=== PATIENT | male | born 1945 | race Caucasian/White ===

== ENCOUNTER 2019-09-29 11:34 | Observation (INO) ==
--- NOTE | 2019-09-28 13:46 | Anesthesiology Consultation ---
Date of Service September 28, 2019 Assessment & Plan (1) Encounter for pre-operative examination: Chart Review Chart Review: Pending: Refer to Additional Notes / Consult section awaiting labs/ecg History Surgery Operation Date: 09/29/19 13:50 Proposed Procedures p Left Quadricep Tendon Repair - Edgard Arciniega Height/Weight Height: 5 ft 10 in Weight: 85.275 kg Allergies Allergy/AdvReac Type Severity Reaction Status Date / Time No Known Allergies Allergy Verified 09/28/19 12:47 Medications Home Medications Medication Instructions Recorded Confirmed Last Taken oxycodone-acetaminophen [Percocet] 1 tab PO Q6H PRN #12 tab 09/27/19 09/28/19 Unknown ascorbic acid (vitamin C) [Vitamin 1,000 mg PO QAM 09/28/19 09/28/19 Unknown C] aspirin [Aspir-81] 81 mg PO QAM 09/28/19 09/28/19 Unknown atorvastatin 10 mg PO HS 09/28/19 09/28/19 Unknown multivitamin 1 tab PO QAM 09/28/19 09/28/19 Unknown sildenafil 50 mg PO DAILY PRN 09/28/19 09/28/19 Unknown Past Medical History Medical History Colon cancer Glaucoma Hyperlipidemia Non Hodgkin's lymphoma DX'D 2010 TREATED WITH RADIATION-F/U PCP Past Family History Family History Brother Family hx of colon cancer Brother Family hx of colon cancer Aunt Family hx of colon cancer Aunt Family hx of colon cancer Grandfather (Paternal) Family hx of colon cancer Past Surgical History Surgical History Degeneration of lumbar intervertebral disc (Inactive 01/16/14) LOWER BACK History of bowel resection 1990-CHEMO/RADIATION History of cholecystectomy History of colonoscopy Social History Smoking Status: Never smoker Do You Dip or Chew Tobacco: No Hx Alcohol Use: Yes Alcohol type: beer alcohol intake frequency: 0-2 drinks per day Hx Substance Use: No
--- NOTE | 2019-09-28 14:12 | XRay Report ---
XR chest 2V PA/lateral CLINICAL HISTORY: PRE OP COMPARISON STUDY: 01/03/2014 FINDINGS: The cardiac and mediastinal contours are normal. There is no evidence of focal pulmonary co nsolidation. There is no evidence of failure. No pleural effusions are visualized.[ IMPRESSION: No active disease in the chest. ACT 112: Negative or not required by law. Electronically signed by: Irvin Guzman M.D. 09/28/2019 2:11 PM
[2019-09-28 14:25] LABS: Basophils # (auto) 0.03 K/uL (0-0.2); Basophils % (auto) 0.3 %; Eosinophils # (auto) 0.13 K/uL (0-0.5); Eosinophils % (auto) 1.4 %; Hemoglobin 12.9 g/dL (14.0-18.0); Immature Granulocytes # (auto) 0.08 K/uL (0.00-0.02); Immature Granulocytes % (auto) 0.8 %; Lymphocytes # (auto) 1.62 K/uL (1.2-3.4); Lymphocytes % (auto) 16.9 %; Mean Corpuscular Hemoglobin 33.2 pg (25-34); Mean Corpuscular Hgb Conc 33.9 g/dL (32-36); Mean Corpuscular Volume 97.9 fL (80-100); Monocytes # (auto) 0.42 K/uL (0.11-0.59); Monocytes % (auto) 4.4 %; Neutrophils # (auto) 7.29 K/uL (1.4-6.5); Neutrophils % (auto) 76.2 %; Platelet Count 171 K/uL (130-400); RDW Coefficient of Variation 13.5 % (11.5-14.5); RDW Standard Deviation 48.3 fL (36.4-46.3); Red Blood Count 3.88 M/uL (4.7-6.1); White Blood Count 9.57 K/uL (4.8-10.8)
[2019-09-28 14:45] LABS: Albumin Level 3.8 gm/dl (3.4-5.0); BUN Creatinine Ratio 12.8 (10-20); Creatinine Clr Calc Pharmacy 69.3 ml/min; Est GFR (African American) 88.3; Est GFR (Non-African American) 76.2; Potassium 4.1 mmol/L (3.5-5.1)
[2019-09-28 14:48] LABS: Albumin Globulin Ratio 1.2 (0.9-2); Bilirubin,Total 0.9 mg/dl (0.2-1); Globulin 3.2 gm/dl (2.5-4.0)
--- NOTE | 2019-09-29 06:13 | Electrocardiogram Report ---
Test Reason : Blood Pressure : / mmHG Vent. Rate : 086 BPM Atrial Rate : 086 BPM P-R Int : 178 ms QRS Dur : 098 ms QT Int : 380 ms P-R-T Axes : 050 -44 045 degrees QTc Int : 454 ms Normal sinus rhythm Left axis deviation Abnormal ECG When compared with ECG of 03-JAN-2014 15:32, No significant change was found Confirmed by Armen Martinez ([id number]) on 09/29/2019 6:12:57 AM Referred By: Edgard Arciniega Confirmed By:Armen Martinez
[~2019-09-29 11:34] MED LIST: ACETAMINOPHEN 500 MG TAB PO SCH; CEFAZOLIN 2000MG 2,000 MG/15 ML SYR IV SCH; CeleBREX 200 MG CAP PO SCH; EPINEPHrine INJ 1 MG/ML AMP ONE; GABAPENTIN 300 MG CAP PO SCH; LR 15ML/HR IV SCH; LR 60ML/HR IV SCH; ROPIVACAINE 0.5% 5 MG/ML 30 ML VIAL ONE
--- NOTE | 2019-09-29 12:02 | History & Physical Bridge Note ---
Date of Service September 29, 2019 History & Physical Bridge Note I have examined the patient, reviewed the History & Physical and in the interval since the performance of the History & Physical I have noted the following changes of clinical significance: no changes noted
[2019-09-29] MEDS ORDERED: MEPERIDINE HCL 25 MG/ML CARP IV PRN (14:05)
[2019-09-29] MEDS ORDERED: PHENYLEPHRINE 100MCG/ML 5ML SYR IV PRN (14:05)
[2019-09-29] MEDS ORDERED: ePHEDrine sulfate 50 MG/ML AMP IV PRN (14:05)
[2019-09-29] MEDS ORDERED: LABETALOL HCL IV 5 MG/ML 20ML IV PRN (14:05)
[2019-09-29] MEDS ORDERED: ONDANSETRON INJ 2 MG/ML 2 ML VIAL IV PRN (14:05)
[2019-09-29] MEDS ORDERED: fentaNYL citrate 100 MCG/2 ML VIAL IV PRN (14:05)
[2019-09-29] MEDS ORDERED: ATROPINE SULFATE 0.1 MG/ML 10ML SYR IV PRN (14:05)
[2019-09-29] MEDS ORDERED: fentaNYL citrate 100 MCG/2 ML VIAL ONE ×2 (14:13→15:58)
[2019-09-29] MEDS ORDERED: MIDAZOLAM HCL 1 MG/ML 2ML VIAL ONE (14:13)
[2019-09-29] MEDS ORDERED: EPINEPHrine INJ 1 MG/ML AMP ONE (15:03)
[2019-09-29] MEDS ORDERED: BUPIVACAINE 0.25% 30 ML VIAL ONE (15:04)
[2019-09-29] MEDS ORDERED: ONDANSETRON INJ 2 MG/ML 2 ML VIAL ONE (16:52)
[2019-09-29] MEDS ORDERED: LIDOCAINE HCL 2% 2 ML VIAL/AMP(20MG/ML) INFIL ONE (16:52)
[2019-09-29] MEDS ORDERED: DEXAMETHASONE SOD INJ 4 MG/ML VIAL ONE (16:52)
[2019-09-29] MEDS ORDERED: PROPOFOL IV EMULSION 10 MG/ML 20 ML VIAL IV ONE (16:52)
--- NOTE | 2019-09-29 17:00 | Post Operative Brief Note ---
PG Immediate Post Op with CF Date of Surgery September 29, 2019 Pre & Post Diagnosis Operation Date: 09/29/19 13:50 Pre-Op Diagnosis: Quadricep Tendon Rupture Post-Op Diagnosis: Quadricep Tendon Rupture I identified the patient and participated in the time-out.: Yes Procedure Operation Date: 09/29/19 13:50 Actual Procedures p Left Quadricep Tendon Repair(Left) - Edgard Arciniega Surgeon Edgard Arciniega Straightener Hand Kermit Carroll PA-C Estimated Blood Loss 25 Findings Consistent with Post-Op Diagnosis
[2019-09-29] MEDS ORDERED: NALOXONE HCL 0.4 MG/1 ML VIAL/CARP IV PRN (17:03)
[2019-09-29] MEDS: HYDROmorphone INJ 1 MG/ML SYRINGE IV PRN ×8 (17:35→18:10)
--- NOTE | 2019-09-29 17:53 | Operative Report ---
PG Post Operative Report Pre & Post Diagnosis Operation Date: 09/29/19 13:50 Pre-Op Diagnosis: Quadricep Tendon Rupture Post-Op Diagnosis: Quadricep Tendon Rupture I identified the patient and participated in the time-out.: Yes Procedure Operation Date: 09/29/19 13:50 Actual Procedures p Left Quadricep Tendon Repair(Left) - Edgard Arciniega Surgeon Edgard Arciniega Insurance Assistant Kermit Carroll PA-C Estimated Blood Loss 25 Findings See Below He had a full-thickness quadricep rupture that was minimally retracted. He had extension of the rupture through the medial retinaculum and through the superior lateral retinaculum extended up the lateral aspect of the quadricep tendon. It was easily approximated with minimal tension to proximally 40 degrees of flexion. Repair was accomplished with fiber tape through 3 bone tunnels through the patella. Specimens None Anesthesia Type General Regional Complications none Disposition Accompanied Patient To Recovery: No Disposition: Recovery Room Indications 74-year-old male who sustained a fall onto stairs at home resulting immediate pain and inability to extend his knee. Injury occurred on 09/27/2019. He presented to clinic with history, physical exam and advanced imaging consistent with a full-thickness disruption of the quadricep tendon. He was counseled on his treatment options and surgery was recommended. The risk-benefit surgery outlined in detail as discussed in the preoperative note. Description of Procedure On the day of surgery, the patient was greeted in the preoperative holding area. The informed consent was reviewed and confirmed by myself and the patient. The patient identified the surgical site and was marked by me. The patient was then turned over to anesthesia. Anesthesia performed a regional anesthetic block with excellent effect. Patient was then taken to the operating place upon the OR table and anesthesia was induced. The airway was secured. A midline incision over the patella was made to provide access to the quadricep tendon. We also exposed the distal pole the patella. Medial lateral skin flaps were developed and Bovie electrocautery was used for hemostasis. The peritenon was excised over the quadricep tendon and the tendon stump was debrided. The superior pole of patella or the insertion site of the quadricep tendon was debrided of all soft tissue using curette and rondure. We thoroughly irrigated the hematoma and thoroughly irrigated the joint. The quad tendon was captured with 2 Allis clamps. And then whipstitches were performed with running locking fiber tape suture for 2 cores on the medial lateral aspect resulting in 4 fiber tape tails. The patella was then exposed using a bump underneath the knee. A central drill pin was placed using a 2 mm drill from the superior pole to the inferior pole. Using the central axis II additional tunnels were made using a 2 mm drill on the medial lateral side. The Rift.io suture passer was used from proximal to distal and then loaded with passing suture loop. This was used to shuttle the tails of the quadricep tendon whipstitch back through the tunnels. The central tunnel past the 2 medial tail as well as single tails past of the medial lateral tunnel. The knee was placed in full extension and the tendon was then reduced forcefully using the tension on the fiber tape tails. A firm knot was tied after passing the tails to the medial lateral aspect outside the patellar tendon distally. Firm knots were tied. We then thoroughly irrigated the soft tissues. #5 Tycron suture was used on the medial and lateral retinacular repairs. The medial tear was straight medial and the lateral and extend approximately approximately 8 cm. Closure consisted of #1 Vicryl in the deep peritenon layer to cover the exposed tendon. Portions of the prepatellar bursa were then closed over the suture, where possible. 0 Vicryl suture was used in the deep subcuticular and fascial layers. The skin was approximated using 2-0 Vicryl. Final subcuticular closure was accomplished using iris. The wound was dressed with the jumpstart dressing from the fiber tape kit followed by sterile gauze, ABD, and web roll. An Angel wrap was placed from toes to thigh. The limb was placed in a standard postoperative range of motion brace locked in full extension. Patient tolerated seizure well, was extubated the operative without complication, and was transported to the PACU in stable condition. Disposition: Patient will remain in the locked range of motion brace in full extension. He can weight-bear as tolerated with his brace in place. He will be admitted for observation so the PT and OT can evaluate for his safety to go home versus inpatient rehabilitation. DVT prophylaxis will consist of oral aspirin 81 mg twice daily. I attest to the content of the Intraoperative Record and any orders documented therein. Any exceptions are noted below.
--- NOTE | 2019-09-29 18:28 | Anesthesiology Progress Note ---
Date of Service September 29, 2019 Anesthesia Post Procedure Vital Signs Vital Signs: Temp Pulse Pulse Resp BP BP Pulse Ox 09/29/19 18:20 37.6 C H 95 H 14 158/65 H 95 09/29/19 18:10 86 12 172/76 H 98 09/29/19 18:00 93 H 23 137/75 92 09/29/19 17:50 84 13 146/75 H 95 09/29/19 17:40 85 12 156/71 H 96 09/29/19 17:30 87 15 159/71 H 96 09/29/19 17:20 85 12 150/78 H 99 09/29/19 17:10 82 12 149/73 H 99 09/29/19 17:03 37.2 C 85 12 151/77 H 98 09/29/19 12:23 36.7 C 89 20 152/73 H 95 Pain Intensity Right Knee: Pain Intensity: 2 Left Leg: Pain Intensity: 5 Transfer of Care Handoff Completed per policy Notes Mental Status: alert / awake / arousable and participated in evaluation Patient Amnestic to Procedure: Yes Nausea / Vomiting: adequately controlled Pain: adequately controlled and improving with treatment Airway Patency, RR, SpO2: stable & adequate BP & HR: stable & adequate Hydration State: stable & adequate Anesthetic Complications: no major complications apparent and Pt Satisfied with anesthetic care
[2019-09-29] MEDS ORDERED: DiphenhydrAMINE HCL 50 MG/ML VIAL IV PRN (18:44)
[2019-09-29] MEDS ORDERED: HYDROmorphone INJ 0.5 MG/0.5 ML SYR IV PRN (18:44)
[2019-09-29] MEDS ORDERED: diazePAM 2 MG TABLET PO PRN (18:44)
[2019-09-29] MEDS ORDERED: NON-FORMULARY MEDICATION (Sildenafil 50 MG) PO PRN (18:44)
[2019-09-29] MEDS ORDERED: ONDANSETRON 4 MG OD TAB PO PRN (18:44)
[2019-09-29] MEDS: ASPIRIN 81 MG ECTAB PO SCH (20:37)
[2019-09-29] MEDS: KETOROLAC 0.5% OP SOLN 5 ML BTL OPL SCH (20:42)
[2019-09-29] MEDS: prednisoLONE acetate 1% OP SUSP 5 ML BTL OPR SCH (20:43)
[2019-09-29] MEDS: KETOROLAC 0.5% OP SOLN 5 ML BTL OPR SCH (20:43)
[2019-09-29] MEDS: DORZOLAMIDE HCL 2% OPH SOLN 10 ML BTL OPL SCH (20:44)
[2019-09-29] MEDS: BRIMONIDINE TARTRATE 0.2% 5ML OP SCH (20:44)
[2019-09-29] MEDS: FLUOROMETHOLONE 0.1% OPL SCH (20:44)
[2019-09-29] MEDS: TIMOLOL MALEATE 0.25% OP SOLN 5 ML BTL OPL SCH (20:45)
[2019-09-29] MEDS ORDERED: ATORVASTATIN 10 MG TAB PO SCH (21:00)
[2019-09-29] MEDS: OXYCODONE HCL IR 5 MG TAB (IMMEDIATE RELEASE) PO PRN ×2 (22:53→23:46)
[2019-09-30] MEDS: TIMOLOL MALEATE 0.25% OP SOLN 5 ML BTL OPL SCH (05:52)
[2019-09-30] MEDS: DORZOLAMIDE HCL 2% OPH SOLN 10 ML BTL OPL SCH (05:52)
[2019-09-30] MEDS: FLUOROMETHOLONE 0.1% OPL SCH ×2 (05:53→09:53)
[2019-09-30] MEDS: prednisoLONE acetate 1% OP SUSP 5 ML BTL OPR SCH (05:53)
[2019-09-30] MEDS: KETOROLAC 0.5% OP SOLN 5 ML BTL OPL SCH (05:54)
[2019-09-30] MEDS: BRIMONIDINE TARTRATE 0.2% 5ML OP SCH (05:54)
[2019-09-30] MEDS: KETOROLAC 0.5% OP SOLN 5 ML BTL OPR SCH (05:56)
[2019-09-30] MEDS: OXYCODONE HCL IR 5 MG TAB (IMMEDIATE RELEASE) PO PRN ×2 (06:40→11:43)
[2019-09-30] MEDS: ASPIRIN 81 MG ECTAB PO SCH (08:58)
[2019-09-30] MEDS ORDERED: MULTIVITAMIN TAB PO SCH (09:00)
[2019-09-30] MEDS ORDERED: NETARSUDIL OPL SCH ×2 (09:00→21:00)
[2019-09-30] MEDS ORDERED: ASCORBIC ACID 500 MG TAB PO SCH (09:00)
[2019-09-30] MEDS ORDERED: LATANOPROST OPL SCH ×2 (09:00→21:00)
--- NOTE | 2019-09-30 11:11 | Orthopedic Progress Note ---
Date of Service September 30, 2019 Assessment & Plan (1) Rupture quadriceps tendon: Making excellent progress of postop day 1 after quadricep tendon repair for acute rupture this week. He is admitted today for PT/OT evaluation after surgery. His pain is under reasonable control but it may spike now the block is been dissipated. We will plan for discharge home today with visiting rehabilitation services. If PT/OT evaluations demonstrate that he is better off at a SNF or inpatient rehabilitation, we will change his admission status and await placement with discharge planning. Subjective Reports intermittent pain but is controlled with current medications. No issues with appetite or diet. Denies nausea. Has been working with PT/OT. He even walked in the hallway last night with nursing assistance. Review of Systems Review of Systems: All systems reviewed & are unremarkable except as noted in HPI & below Physical Exam Physical Exam: Is no acute distress, alert and oriented. He is accompanied by his in the room. PT OT assessment ongoing when I was there. He was walking in the hallway with range of motion brace locked in full extension, as appropriate. He was using a walker and making good progress. He has not yet tried stairs. Left lower extremity: The brace is appropriately fit. It was readjusted slightly by me after evaluating the dressing, which is clean dry and intact. He has positive dorsiflexion and plantarflexion. He is neurovascular intact. Results & Data Vital Signs (Past 12 Hours) Vital Signs Temp Pulse Resp BP Pulse Ox 09/30/19 06:23 36.7 C 82 16 175/89 H 93 09/30/19 03:24 36.6 C 80 15 128/67 95 09/29/19 23:33 36.7 C 87 16 141/73 H 96 PG Care Time/CCT Total # of Minutes Spent Total Time Spent with Patient: Total time spent is greater than 50% in coordination of care (as documented) at patient's floor/unit and/or counseling patient: Coding Level of Care Code None Diagnoses Rupture quadriceps tendon S76.112A Encounter type: initial encounter Laterality: left (1) Rupture quadriceps tendon Encounter type: initial encounter Laterality: left Qualified Code(s): S76.112A - Strain of left quadriceps muscle, fascia and tendon, initial encou nter
--- NOTE | 2019-09-30 13:32 | Anesthesiology Progress Note ---
Date of Service September 30, 2019 Anesthesia Post Procedure Vital Signs Vital Signs: Temp Pulse Pulse Resp BP Pulse Ox 09/30/19 12:11 36.9 C 89 18 171/73 H 94 09/30/19 11:58 36.9 C 89 18 171/73 H 94 09/30/19 06:23 36.7 C 82 16 175/89 H 93 09/30/19 03:24 36.6 C 80 15 128/67 95 09/29/19 23:33 36.7 C 87 16 141/73 H 96 09/29/19 21:41 36.7 C 83 18 137/71 95 09/29/19 20:29 36.5 C 82 18 150/75 H 98 09/29/19 19:47 36.7 C 92 H 18 137/91 97 09/29/19 19:06 36.6 C 86 16 149/90 H 97 09/29/19 18:40 36.9 C 89 20 159/81 H 97 09/29/19 18:20 37.6 C H 95 H 14 158/65 H 95 09/29/19 18:10 86 12 172/76 H 98 09/29/19 18:00 93 H 23 137/75 92 09/29/19 17:50 84 13 146/75 H 95 09/29/19 17:40 85 12 156/71 H 96 09/29/19 17:30 87 15 159/71 H 96 09/29/19 17:20 85 12 150/78 H 99 09/29/19 17:10 82 12 149/73 H 99 09/29/19 17:03 37.2 C 85 12 151/77 H 98 Notes Mental Status: alert / awake / arousable Patient Amnestic to Procedure: Yes Nausea / Vomiting: adequately controlled Pain: adequately controlled Airway Patency, RR, SpO2: stable & adequate BP & HR: stable & adequate Hydration State: stable & adequate Anesthetic Complications: no major complications apparent and Pt Satisfied with anesthetic care
--- NOTE | 2019-10-04 15:48 | Discharge Summary ---
Date of Service October 04, 2019 Admission HPI Per Admitting Provider 74 yo M admitted after quadricep tendon repair to observation for pain control and PT/OT evaluation. Admission Exam Per Admitting Provider NAD, WD/WN. LLE: obvious palpable quad tendon defect. Not able to actively extend otherwise ligametously stable knee. DNVI. Principal Diagnosis Left quadricep tendon rupture Discharge Exam Constitutional WD/WN, vitals as above well developed and well nourished; no acute distress and not ill appearing Respiratory normal respiratory effort; no respiratory distress Cardiovascular Rate/Rhythm: regular rate Extremities: normal capillary refill; no edema Gastrointestinal (Abdomen) Percussion/Palpation: abdomen soft; no guarding Musculoskeletal LLE in well-fit ROM brace. Dressing c/d/i. DNVI. Discharge Data Allergies Allergy/AdvReac Type Severity Reaction Status Date / Time No Known Allergies Allergy Verified 09/29/19 12:41 Consultations 09/29/19 17:03 Consult Case Management - Discharge Planning Routine Procedures Performed Operation Date: 09/29/19 13:50 Actual Procedures p Left Quadricep Tendon Repair(Left) - Edgard Arciniega Ordered Studies 09/29/19 05:00 US - OR guided needle placemen Routine Hospital Course (1) Rupture quadriceps tendon: Underwent open quad tendon repair and was admitted for postop pain control and mobilization with PT/OT. He was found to be stable to discharge to outpatient PT/OT with well controlled pain the morning after surgery. He was discharged in stable condition to outpatient care. Total Time Total Time Spent Total Time Spent (In Minutes): 10 Total Time Includes: Examination of the Patient, Discharge Planning, Medication Reconciliation and Communication With Other Providers Discharge Plan Discharge Items Patient Disposition: Home - Home Health Services Reason For Visit: Quad Tendon Rupture Discharge Diagnosis: Left quadricep tendon rupture Condition on Discharge: Good Activity: Per Instructions section Non-emergency contact: Surgeon Call non-emergency contact if: your pain is not controlled, your pain is concerning for you and your temperature is above 101.5 Follow-up/Referrals: Edgard Arciniega [Surgeon] - Shai Fox MD [Primary Care Provider] - Diet: Regular Addtl Attending Provider Instructions: Edgard Arciniega M.D. [facility] Orthopedic Surgery [address], [place] [address] POSTOPERATIVE INSTRUCTIONS BRACE: Keep it in place unless the limb is fully supported in a resting position. Always wear your brace locked in extension when walking, standing, or transferring. You may open your brace for careful hygiene. MOTION: You always want to be sure to get the knee completely straight back of knee towards the bed. WEIGHTBEARING: Weightbearing as tolerated means you can walk on your leg as your pain allows. Use your crutches for support. Always wear your brace,locked in extension, when walking or standing. Gradually return to full weightbearing. ACTIVITY: Please perform ROM (Range of Motion) exercises at least three times per day: 1. Ankle plantarflexion (gas pedal down) and dorsiflexion (pull foot up) 2. Toe flexion/extension wiggle toes 3. Quad isometrics try to activate quadricep muscle with the leg lying straight - squeeze and release when exhausted. WOUND CARE: Leave the dressing in place and keep the area clean and dry. After 3 days, you may remove your dressing. DO NOT REMOVE ANY SUTURES/TIFFANY. After removing your dressing, you may begin to shower carefully with the leg supported in extension. Do not soak the incision. Allow gentle soap and water to run over the wound(s) and pat dry. Please cover the incision(s) with a clean, dry dressing, as needed and replace the brace. Do not use any ointments or topical medications unless directed by your surgeon. Do not submerse the incisions in water no pools, oceans, lakes, jacuzzis, bathtubs, etc for at least 3 weeks. PAIN CONTROL Elevation is your best friend. Elevate the affected extremity above the level of your heart. Swelling is simply fluid. Elevation will allow the fluid to run down hill, reduce swelling, and decrease pain. The affected extremity should be continuously elevated for the first 2-3 days, with the exception of bathroom, hygiene, etc. You may be prone to swelling for several weeks, or until you return to normal function with your leg. Use ice (or cryocuff if you have one). Use for 30 minutes per hour. Do not leave in place longer than 30 minutes, especially when your block is in effect, to prevent frostbite or thermal injury. Medications: 1. Oxycodone (OxyIR) 1-2 tablet(s) orally every 4 hours for pain as needed. Use with Tylenol. Begin tapering OxyIR as soon as possible: reduce from 2 to 1 pills per dose, then spread out the doses over greater time intervals, then try to use only for therapy or for comfort while sleeping. Continue to use regular Tylenol until pain subsides. 2. Tylenol (325mg): 3 tablets every 8 hours orally. Regular dosing of Tylenol is an important part of your baseline pain control. Do not taper Tylenol until you have successfully tapered off of regular OxyIR. Do not take more than 3000mg of Tylenol per day. 3. Zofran 1 tablet orally every 6 hours as needed for nausea related to anesthesia, pain, and narcotic medications CONSTIPATION: Narcotic pain medications can slow down your digestive track, leading to constipation. Stay hydrated. While taking narcotics, the use of stool softeners is recommended. Two over the counter options are: 1. Colace (100mg): take 1-2 tabs twice daily to avoid constipation from OxyIR or other narcotics. 2. Miralax 1 tablespoon in a glass of water 2 times daily until normal bowel movements FOLLOWUP: 1. Ortho Clinic: You should be seen in 10-14 days. Please call immediately to schedule if you do not have an appointment. WHEN TO CALL. If you develop any of the following symptoms, please contact the Orthopedic Clinic at [phone]: Temperature greater than 100.5 taken twice, difficulty breathing, bleeding, fever and chills, increased pain unrelieved by pain meds, uncomfortable cast or splint, or any other concerns. PHYSICAL THERAPY GUIDELINES: [facility] Quadriceps Tendon Repair Guide Ortho Clinic at 2 weeks, 6 weeks, and 12 weeks: May slow or advance progress based on our evaluation and progress with therapy. Phase 1 (0 6 weeks): WBing in full extension with brace locked. ROM exercises limited 0-30 degrees. Assist device (crutches/walker as needed) Phase 2 (6 12 weeks): WBing with brace open 0 30 degrees. ROM exercises can advance beyond 30 to goal of 90 degrees by 12 weeks. No passive stretch of extensor mechanism active flexion/gravity assist/heel slides. Assist device (crutches/walker as needed) Phase 3 (12+ weeks): Advance WBing available range (limited by brace) 30 deg every 2 weeks. Continue ROM exercises 0 90 and advance as pain allows. No passive stretch of extensor mechanism active flexion/gravity assist/heel slides. Assist device (crutches/walker as needed) [facility] Orthopedic Surgery [address], [place] [address] Pending Studies at Discharge: No Stand-Alone Forms: [facility], Smoking Cessation Medications and DC Order Prescriptions: New aspirin [Ecotrin Low Strength] 81 mg Tablet,Delayed Release (Dr/Ec) 81 mg PO BID Qty: 90 RF: 0 ondansetron HCl [Zofran] 4 mg tablet 4 mg PO DAILY PRN (Reason: nausea and vomiting) Qty: 10 RF: 0 oxycodone 5 mg tablet 5 - 10 mg PO Q4H PRN (Reason: pain) Qty: 30 RF: 0 Continued multivitamin Tablet 1 tab PO QAM RF: 0 ascorbic acid (vitamin C) [Vitamin C] 1,000 mg Tablet 1,000 mg PO QAM RF: 0 atorvastatin 10 mg Tablet 10 mg PO HS RF: 0 aspirin [Aspir-81] 81 mg Tablet,Delayed Release (Dr/Ec) 81 mg PO QAM RF: 0 sildenafil 50 mg Tablet 50 mg PO DAILY PRN (Reason: Erectile Dysfunction) RF: 0 fluorometholone 0.1 % Drops,Suspension 1 drp OPL QID RF: 0 dorzolamide 2 % Drops 1 drp OPL TID RF: 0 ketorolac 0.5 % Drops 1 drp OPL TID RF: 0 prednisolone acetate 1 % Drops,Suspension 1 drp OPR BID RF: 0 brimonidine 0.2 % Drops 1 drp OPL TID RF: 0 timolol maleate 0.5 % Drops 1 drp OPL BID RF: 0 Rocklatan 0.02-0.005 % Drops 1 drp OPL PM RF: 0 ketorolac 0.5 % Drops 1 drp OPR TID RF: 0 Discontinued oxycodone-acetaminophen [Percocet] 5-325 mg tablet 1 tab PO Q6H PRN (Reason: pain) Qty: 12 RF: 0 Discharge Orders: Discharge Order (Routine); Ordered 09/30/19 Ordered By: Edgard Enriquez/Other Patient Handouts: Surgery Prevent DVT After, ED Stockings Farrukh Admission Data Admit Date/Time: 09/29/19 17:12 Attending Provider: Edgard Arciniega Admit Provider: Edgard Arciniega Primary Care Provider: Shai Fox Other Interventions: Discharge Summary Assessment (RN) Last Done: 09/30/19 12:11 DC Date/Time DO NOT enter until pt leaves facility: 09/30/19 13:30
== END 2019-09-30 13:30 | disposition home health service (06) ==
LOC: ASU 11:34 → 3E 11:34